=== PATIENT | male | born 1980 | race Two or more races ===

== ENCOUNTER 2023-08-20 14:49 | Inpatient (IN) | payer MEDICAID, OTHER ==
[~2023-08-20] VITALS: Ht 188 cm; Wt 97.2 kg
[2023-08-20 16:45] LABS: Basophils # (auto) 0 10 ^3/uL (0-0.2); Basophils % (auto) 0.2 % (0.0-2.0); Eosinophils # (auto) 0 10 ^3/uL (0-0.8); Eosinophils % (auto) 0.4 % (0.0-7.0); Hematocrit 45.1 % (41.0-53.0); Hemoglobin 14.9 g/dL (13.5-17.5); Lymphocytes % (auto) 8.7 % (10.0-50.0); Mean Corpuscular Hemoglobin 30.2 pg (28.0-32.0); Mean Corpuscular Volume 91.6 fL (80.0-100.0); Monocytes # (auto) 0.6 10 ^3/uL (0-1.3); Monocytes % (auto) 5.5 % (0.0-12.0); Neutrophils # (auto) 10.1 10 ^3/uL (1.6-8.6); Neutrophils % (auto) 85.2 % (37.0-80.0); Nucleated Red Blood Cells % 0.1 %; Red Blood Cells 4.92 10^6/uL (4.5-5.90); Red Cell Distribution Width 12.7 % (11.8-14.3); White Blood Cell 11.8 10^3/uL (4.4-10.8)
[2023-08-20 17:04] LABS: Alanine Aminotransferase 30 U/L (7-40); Albumin 4.3 g/dL (3.2-4.8); Alkaline Phosphatase 84 U/L (46-116); Anion Gap 8 (5-15); Aspartate Aminotransferase 26 U/L (13-40); BUN/Creatinine Ratio 6.7 (10.0-20.0); Blood Urea Nitrogen 8 mg/dL (9-23); Calcium 9.3 mg/dL (8.7-10.4); Carbon Dioxide 28 mmol/L (20-30); Chloride 101 mmol/L (98-107); Glucose 120 mg/dL (74-106); Lipase 345 U/L (12-53); Magnesium 2.1 mg/dL (1.6-2.6); Potassium 3.5 mmol/L (3.5-5.1); Sodium 137 mmol/L (136-145); Total Protein 7.3 g/dL (5.7-8.2)
[2023-08-20 17:08] LABS: Urine Bacteria NONE SEEN /hpf (None Seen); Urine Blood Negative /uL (Negative); Urine Clarity Clear (Clear); Urine Color Yellow (Yellow); Urine Mucus FEW (None Seen); Urine Protein, UAD 1+ (Negative); Urine Specific Gravity 1.023 (1.001-1.035); Urine Urobilinogen Normal (Negative); Urine WBC 1 /hpf (0 - 3); Urine pH 7.5 (5.0-8.0)
[2023-08-20] MEDS ORDERED: SODIUM CHLORIDE 0.9% 1,000 ML IV ONE (20:45)
[2023-08-20] MEDS ORDERED: MORPHINE SULFATE 4 MG/ML SYR/VIAL IV ONE (20:45)
[2023-08-20] MEDS ORDERED: ACETAMINOPHEN 325 MG TAB PO PRN (21:15)
[2023-08-20] MEDS ORDERED: D5W/LACTATED RINGERS 1,000 ML IV ONE (21:15)
[2023-08-20] MEDS ORDERED: HYDROcodone-ACET 5/325MG TAB PO PRN (21:15)
[2023-08-20] MEDS ORDERED: DEXTROSE (50%) 50ML SYRG IV PRN (21:15)
[2023-08-20 22:19] VITALS: PULSE 80; RESP 15; O2SAT 96
[2023-08-20] MEDS: SODIUM CHLOR 0.9% PF (SALINE LOCK) 10ML VIAL/SYR IV SCH (22:45)
[2023-08-21] MEDS: ACCU-CHEK COMFORT CURVE STRIP VI SCH ×5 (00:14→22:57)
[2023-08-21] MEDS: ONDANSETRON HCL 4 MG/2 ML VIAL IV PRN ×3 (00:25→22:50)
[2023-08-21] MEDS: HYDROmorphone HCL 2 MG/ML VL/or syr IV PRN ×5 (00:27→22:57)
[2023-08-21] MEDS: InsuLIN REG 1unit/0.01ml Soln (100units/ml) SC SCH ×5 (06:00→22:57)
[2023-08-21] MEDS: SODIUM CHLOR 0.9% PF (SALINE LOCK) 10ML VIAL/SYR IV SCH ×3 (06:14→22:58)
[2023-08-21 08:00] VITALS: PULSE 88; RESP 17; O2SAT 100
[2023-08-21] MEDS: ENOXAPARIN SOD 40 MG/0.4 ML SYRINGE SC SCH (08:18)
[2023-08-21] MEDS ORDERED: PANTOPRAZOLE 40 MG/10 ML VIAL INJ IV ONE (13:15)
[2023-08-21] MEDS: SODIUM CHLORIDE 0.9% 1,000 ML IV SCH (14:16)
[2023-08-21 16:09] VITALS: PULSE 84; RESP 19; O2SAT 97
[2023-08-21 16:17] VITALS: BP 132/91; PULSE 80; RESP 18; TEMP 97.5; O2SAT 97
[2023-08-21] MEDS ORDERED: PERCOT PO (16:42)
[2023-08-21 16:55] VITALS: BP 132/91; PULSE 84; RESP 19; TEMP 98.5; O2SAT 97
[2023-08-21 20:00] VITALS: PULSE 96; RESP 20; O2SAT 96
[2023-08-21 22:00] VITALS: BP 154/97; PULSE 20; RESP 20; TEMP 98.6; O2SAT 96
[2023-08-22] VITALS (7 sets, daily range): BP systolic 113–144; BP diastolic 68–91; PULSE 80–96; RESP 17–22; TEMP 97.9–98.4; O2SAT 94–99
[2023-08-22] MEDS: SODIUM CHLORIDE 0.9% 1,000 ML IV SCH ×4 (04:34→23:43)
[2023-08-22] MEDS: HYDROmorphone HCL 2 MG/ML VL/or syr IV PRN ×3 (05:01→17:36)
[2023-08-22] MEDS: ONDANSETRON HCL 4 MG/2 ML VIAL IV PRN (05:01)
[2023-08-22] MEDS: SODIUM CHLOR 0.9% PF (SALINE LOCK) 10ML VIAL/SYR IV SCH ×3 (05:05→23:44)
[2023-08-22] MEDS: ACCU-CHEK COMFORT CURVE STRIP VI SCH ×4 (05:05→23:44)
[2023-08-22] MEDS: InsuLIN REG 1unit/0.01ml Soln (100units/ml) SC SCH ×4 (05:05→23:44)
[2023-08-22] MEDS: ENOXAPARIN SOD 40 MG/0.4 ML SYRINGE SC SCH (09:45)
[2023-08-22] MEDS: PANTOPRAZOLE 40 MG/10 ML VIAL INJ IV SCH (09:46)
[2023-08-23] VITALS (7 sets, daily range): BP systolic 130–144; BP diastolic 85–97; PULSE 72–85; RESP 15–18; TEMP 98.2–99.1; O2SAT 96–100
[2023-08-23] MEDS: HYDROmorphone HCL 2 MG/ML VL/or syr IV PRN ×5 (00:10→21:08)
[2023-08-23] MEDS: InsuLIN REG 1unit/0.01ml Soln (100units/ml) SC SCH (06:00)
[2023-08-23] MEDS: SODIUM CHLOR 0.9% PF (SALINE LOCK) 10ML VIAL/SYR IV SCH ×3 (06:15→21:08)
[2023-08-23] MEDS: ACCU-CHEK COMFORT CURVE STRIP VI SCH (06:15)
[2023-08-23] MEDS: SODIUM CHLORIDE 0.9% 1,000 ML IV SCH ×3 (06:40→21:30)
[2023-08-23] MEDS: PANTOPRAZOLE 40 MG/10 ML VIAL INJ IV SCH (09:18)
[2023-08-23] MEDS: ENOXAPARIN SOD 40 MG/0.4 ML SYRINGE SC SCH (09:18)
[2023-08-24] MEDS: HYDROmorphone HCL 2 MG/ML VL/or syr IV PRN ×3 (03:30→12:51)
[2023-08-24 05:00] VITALS: BP 143/96; PULSE 74; RESP 18; TEMP 98.1; O2SAT 99
[2023-08-24] MEDS: SODIUM CHLORIDE 0.9% 1,000 ML IV SCH (05:29)
[2023-08-24] MEDS: SODIUM CHLOR 0.9% PF (SALINE LOCK) 10ML VIAL/SYR IV SCH ×2 (05:31→08:57)
[2023-08-24 08:00] VITALS: BP 142/85; PULSE 77; RESP 20; TEMP 98.2
[2023-08-24] MEDS ORDERED: PANT40T PO (08:28)
[2023-08-24] MEDS ORDERED: HYDR-4902 PO (08:28)
[2023-08-24] MEDS: ENOXAPARIN SOD 40 MG/0.4 ML SYRINGE SC SCH (08:47)
[2023-08-24] MEDS: PANTOPRAZOLE 40 MG/10 ML VIAL INJ IV SCH (08:47)
[2023-08-24 09:00] VITALS: BP 142/85; PULSE 68; RESP 20; TEMP 98.2; O2SAT 99
[2023-08-24 11:05] VITALS: BP 134/86; PULSE 64; PULSE 77; RESP 18; RESP 20; TEMP 98.2; TEMP 98.3; O2SAT 98; O2SAT 99
[2023-08-24 13:00] VITALS: BP 134/86; PULSE 64; RESP 18; TEMP 98.3; O2SAT 98
== END 2023-08-24 14:57 | disposition home or self-care (01) | DRG 282 ==
LOC: ER 14:49 → OVERFLOW 21:09 → CENTRAL 08-21 14:46
PROVIDERS: ADMIT Internal Medicine; ATTEND Family Medicine
DX: K85.90 Acute pancreatitis without necrosis or infection, unspecified (principal); R65.10 Systemic inflammatory response syndrome (SIRS) of non-infectious origin without acute organ dysfunction; I69.354 Hemiplegia and hemiparesis following cerebral infarction affecting left non-dominant side; K29.80 Duodenitis without bleeding; F10.10 Alcohol abuse, uncomplicated; Y90.9 Presence of alcohol in blood, level not specified
CPT/HCPCS: 36415; 74176; 76705; 80053; 81001; 82962; 83690; 83735; 85025; C9113; G0378; J2405